=== PATIENT | female | born 1960 | race Caucasian/White ===

== ENCOUNTER 2016-12-01 10:37 | Emergency (ER) | payer SELFPAY ==
[~2016-12-01] VITALS: Ht 154.9 cm; Wt 74.2 kg
[~2016-12-01 10:37] MED LIST: AMOX875T PO; FLUT1SPR9 EACH NARE; [UNRECOGNIZED DRUG - CODE] EACH EAR
[2016-12-01 10:46] VITALS: BP 131/66; PULSE 98; RESP 16; TEMP 99.4; O2SAT 95
[2016-12-01] MEDS ORDERED: FLUT1SPR5 EACH NARE (11:13)
[2016-12-01] MEDS ORDERED: LEVA750T PO (11:13)
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
== END 2016-12-01 11:38 | disposition home or self-care (01) ==
LOC: PHEFT 10:37
DX: J20.9 Acute bronchitis, unspecified (principal); J32.9 Chronic sinusitis, unspecified; I10 Essential (primary) hypertension; F17.210 Nicotine dependence, cigarettes, uncomplicated; K50.90 Crohn's disease, unspecified, without complications
CPT/HCPCS: 99283

== ENCOUNTER 2017-05-03 08:34 | Emergency (ER) | payer SELFPAY ==
[~2017-05-03] VITALS: Ht 154.9 cm; Wt 78.0 kg
[~2017-05-03 08:34] MED LIST changes: -AMOX875T PO; +FLUT1SPR5 EACH NARE; -FLUT1SPR9 EACH NARE; +LEVA750T PO; -[UNRECOGNIZED DRUG - CODE] EACH EAR
[2017-05-03 08:44] VITALS: BP 147/89; PULSE 92; RESP 20; TEMP 98.1; O2SAT 96
[2017-05-03] MEDS ORDERED: KETOROLAC TROMETHAMINE 30 MG/ML (IVP) VIAL IVP ONE (09:00)
[2017-05-03] MEDS ORDERED: HYDROmorphone HCL PF 1 MG/ML VIAL IVS ONE ×2 (09:00→10:30)
[2017-05-03] MEDS ORDERED: methylPREDNISolone SOD SUCC 125 MG/2 ML VIAL IV PUSH ONE (09:00)
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
[2017-05-03] MEDS ORDERED: PERC7.5T13 PO (10:11)
[2017-05-03] MEDS ORDERED: KETO10 PO (10:11)
[2017-05-03] MEDS ORDERED: MEDR4PAK PO (10:11)
[2017-05-03 11:01] VITALS: BP 105/66; PULSE 87; RESP 16; O2SAT 97
[2017-05-03 11:40] VITALS: RESP 16
== END 2017-05-03 11:48 | disposition home or self-care (01) ==
LOC: PHED 08:34
DX: M54.5 Low back pain (principal); G89.29 Other chronic pain; F17.200 Nicotine dependence, unspecified, uncomplicated
CPT/HCPCS: 72110; 96374; 96375; 96376; 99284; J1170; J1885; J2930

== ENCOUNTER 2017-05-10 09:24 | Emergency (ER) | payer SELFPAY ==
[~2017-05-10] VITALS: Ht 154.9 cm; Wt 78.0 kg
[~2017-05-10 09:24] MED LIST changes: -FLUT1SPR5 EACH NARE; +KETO10 PO; -LEVA750T PO; +MEDR4PAK PO; +PERC7.5T13 PO
[2017-05-10 09:34] VITALS: BP 135/74; PULSE 83; RESP 16; TEMP 97.4; O2SAT 97
[2017-05-10] MEDS ORDERED: IBUP800T23 PO (11:01)
[2017-05-10] MEDS ORDERED: LISI-515 PO (11:01)
[2017-05-10] MEDS ORDERED: ORPHENADRINE INJ 60 MG/2 ML AMP IM ONE (11:30)
[2017-05-10] MEDS ORDERED: KETOROLAC TROMETHAMINE 60 MG/2 ML (IM) VIAL IM ONE (11:30)
[2017-05-10] MEDS ORDERED: MORPHINE SULFATE 4 MG/ML INJ IM ONE (11:30)
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
== END 2017-05-10 12:25 | disposition home or self-care (01) ==
LOC: PHED 09:24 → PHEFT 12:25
DX: M54.32 Sciatica, left side (principal); I10 Essential (primary) hypertension; J44.9 Chronic obstructive pulmonary disease, unspecified; K21.9 Gastro-esophageal reflux disease without esophagitis; K22.70 Barrett's esophagus without dysplasia; K50.90 Crohn's disease, unspecified, without complications; F17.210 Nicotine dependence, cigarettes, uncomplicated
CPT/HCPCS: 96372; 99284; J1885; J2270; J2360

== ENCOUNTER 2017-05-23 09:42 | Emergency (ER) | payer SELFPAY ==
[~2017-05-23] VITALS: Ht 154.9 cm; Wt 80.0 kg
[~2017-05-23 09:42] MED LIST changes: +IBUP800T23 PO; -KETO10 PO; +LISI-515 PO; -MEDR4PAK PO; -PERC7.5T13 PO
[2017-05-23 09:44] VITALS: BP 135/85; PULSE 90; RESP 16; TEMP 97.3; O2SAT 96
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
[2017-05-23] MEDS ORDERED: MORPHINE SULFATE 4 MG/ML INJ IV PUSH ONE (10:30)
[2017-05-23 10:50] LABS: AUTOMATED NEUTROPHIL # 6.1 TH/MM3 (1.8-7.7); BASOPHIL # 0.1 TH/MM3 (0-0.2); BASOPHIL % 0.6 % (0.0-2.0); EOSINOPHIL # 0.1 TH/MM3 (0-0.4); EOSINOPHIL % 1.3 % (0.0-4.0); HEMATOCRIT 39.1 % (35.0-46.0); HEMO FLAGS DIFF FINAL; LYMPH % 25.6 % (9.0-44.0); LYMPHOCYTE # 2.3 TH/MM3 (1.0-4.8); MEAN CELL VOLUME 92.7 FL (80.0-100.0); MEAN CORPUSCULAR HEMOGLOBIN 31.1 PG (27.0-34.0); MEAN CORPUSCULAR HGB CONC 33.6 % (32.0-36.0); MONO % 5.9 % (0.0-8.0); NEUT % 66.6 % (16.0-70.0); PLATELET COUNT 348 TH/MM3 (150-450); RED BLOOD COUNT 4.21 MIL/MM3 (4.00-5.30); RED CELL DISTRIBUTION WIDTH 14.7 % (11.6-17.2); WHITE BLOOD COUNT 9.2 TH/MM3 (4.0-11.0)
[2017-05-23] MEDS ORDERED: PANTOPRAZOLE SOD 40 MG DELAYED RELEASE TAB PO ONE (11:00)
[2017-05-23 11:11] LABS: APTT (PATIENT) 23.3 SEC (24.3-30.1); INTERNATIONAL NORMALIZED RATIO 0.9 RATIO; PROTHROMBIN TIME - PATIENT 10.1 SEC (9.8-11.6)
[2017-05-23 11:15] LABS: BICARBONATE 20.8 MEQ/L (21.0-32.0); POTASSIUM 4.3 MEQ/L (3.5-5.1)
[2017-05-23] MEDS ORDERED: HYDR-3533 PO (11:36)
[2017-05-23] MEDS ORDERED: MEDR4PAK PO (11:36)
[2017-05-23] MEDS ORDERED: ROBA500T PO (11:36)
[2017-05-23] MEDS ORDERED: PROT40TA PO (11:37)
[2017-05-23] MEDS ORDERED: ACETAMINOPHEN/HYDROcodone 325 MG/5 MG TAB PO ONE (11:45)
== END 2017-05-23 12:25 | disposition home or self-care (01) ==
LOC: NEPD 09:42
DX: M54.42 Lumbago with sciatica, left side (principal); K92.2 Gastrointestinal hemorrhage, unspecified
CPT/HCPCS: 80048; 85025; 85610; 85730; 96374; 99284; J2270